=== PATIENT | male | born 1990 | race Caucasian/White ===

== ENCOUNTER 2017-02-19 15:42 | Inpatient (IN) | payer OTHER ==
[~2017-02-19] VITALS: Ht 182.9 cm; Wt 70.3 kg
[2017-02-19 17:55] VITALS: BP 127/75; PULSE 66; RESP 18; TEMP 98.6; O2SAT 99
[2017-02-19] MEDS ORDERED: BENZTROPINE MESYLATE 1 MG TAB PO PRN (18:30)
[2017-02-19] MEDS ORDERED: diphenhydrAMINE HCL 50 MG CAP - HS PRN PO (18:30)
[2017-02-19] MEDS ORDERED: BENZTROPINE MESYLATE 2 MG/2 ML VIAL IM PRN (18:30)
[2017-02-19] MEDS ORDERED: ACETAMINOPHEN 325 MG TAB PO PRN (18:30)
[2017-02-19] MEDS ORDERED: LORazepam 1 MG TAB PO PRN (18:30)
[2017-02-19] MEDS ORDERED: MAGNESIUM HYDROXIDE SUSP 30 ML CUP PO PRN (18:30)
[2017-02-19] MEDS ORDERED: ALUMINUM/MAGNESIUM/SIMETH 30 ML CUP PO PRN (18:30)
[2017-02-19] MEDS ORDERED: LORazepam 2 MG/ML VIAL IM PRN (18:30)
[2017-02-20 06:00] VITALS: BP 110/54; PULSE 71; RESP 17; TEMP 97.8; O2SAT 97
[2017-02-20] MEDS: NICOTINE 21 MG/24 HR PATCH T-DERMAL SCH (08:53)
[2017-02-20 09:32] LABS: ANION GAP 8 MEQ/L (5-15); BICARBONATE 29.3 MEQ/L (21.0-32.0); BLOOD UREA NITROGEN 11 MG/DL (7-18); CHLORIDE 103 MEQ/L (98-107); POTASSIUM 3.8 MEQ/L (3.5-5.1); SODIUM (NA) 140 MEQ/L (136-145)
[2017-02-20 09:33] LABS: GLOMERULAR FILTRATION RATE 99 ML/MIN (>89)
[2017-02-20 09:35] LABS: HDL CHOLESTEROL 54.6 MG/DL (40.0-60.0); LDL CHOLESTEROL 69 MG/DL (0-99)
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
[2017-02-20 15:20] VITALS: BP 116/66; PULSE 75; RESP 18; TEMP 97.3; O2SAT 98
[2017-02-20] MEDS: REMOVE OLD NICOTINE PATCH T-DERMAL SCH (21:00)
[2017-02-21 05:57] VITALS: BP 122/79; PULSE 66; RESP 18; TEMP 96.4; O2SAT 96
[2017-02-21] MEDS: NICOTINE 21 MG/24 HR PATCH T-DERMAL SCH (09:00)
[2017-02-21 09:59] LABS: HEMOGLOBIN A1b 1.5 %; HEMOGLOBIN Ao 86.9 %; HEMOGLOBIN LA1C 1.8 %; HEMOGLOBIN P3 3.2 %
--- NOTE | 2017-02-21 14:01 | HHI.PYPN ---
Subjective Remarks Pt seen and discussed with staff. He has been calm and cooperative on unit. No aggression or agitation. He denies SI/HI. He reports that he slept well and that mood is much improved today. Objective Alert: Yes [place]: Person, Place, Date, Situation Mood: Calm Affect: Restricted Memory Intact: Immediate, Recent, Remote Hallucinations: Other (none) Delusions: No Delusion Type: Other (none) Suicidal: Ideation (denies) Homicidal: Ideation (denies) Insight/Judgment fair Vitals/IOs Vital Signs Date Time Temp Pulse Resp B/P Pulse Ox O2 Delivery O2 Flow Rate FiO2 02/21/17 05:57 96.4 66 18 122/79 96 Assessment & Plan Problem List: (1) Adjustment disorder, unspecified ICD Code: F43.20 Assessment & Plan Continue current tx plan. Estimated LOS: days Justification for Cont. Inpt. monitoring for safety Request HC Surrog/Guard Advoc?: Nilda Andrews MD Feb 21, 2017 14:01
[2017-02-21 19:24] VITALS: BP 110/64; PULSE 62; TEMP 98.1; O2SAT 98
[2017-02-21] MEDS: REMOVE OLD NICOTINE PATCH T-DERMAL SCH (20:12)
[2017-02-22 05:50] VITALS: BP 94/54; PULSE 88; RESP 18; TEMP 97.4; O2SAT 100
[2017-02-22] MEDS: NICOTINE 21 MG/24 HR PATCH T-DERMAL SCH (09:00)
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
== END 2017-02-22 12:45 | disposition home or self-care (01) | DRG 882 ==
LOC: H270 18:04
PROVIDERS: ADMIT Psychiatry & Neurology Psychiatry; ATTEND Psychiatry & Neurology Psychiatry
DX: F43.20 Adjustment disorder, unspecified (principal); Z91.410 Personal history of adult physical and sexual abuse; Z81.8 Family history of other mental and behavioral disorders
CPT/HCPCS: 80048; 80061; 83036